=== PATIENT | female | born 1970 | race Caucasian/White ===

== ENCOUNTER 2016-04-10 08:40 | Emergency (ER) | payer OTHER ==
[2016-04-10] MEDS ORDERED: fentaNYL CITRATE/PF 100 MCG/ 2ML AMP ONE (08:42)
[2016-04-10] MEDS ORDERED: fentaNYL CITRATE/PF 100 MCG/ 2ML AMP IVP ONE ×2 (08:43→09:38)
--- NOTE | 2016-04-10 10:13 | Diagnostic Imaging Report ---
[facility] [address] [facility].[address] [address] Report Submission Date: Apr 10, 2016 10:01:41 AM WOMEN'S STUDIES LECTURER Patient Study Name: SHAWNA HECK Date: Apr 10, 2016 8:54:03 AM WOMEN'S STUDIES LECTURER Modality Type: CR Gender: O Description: LOWER EXTREMITY : 66 Institution: [facility] Physician: DALJIT BENITO Left knee - three views Clinical history: Fall with injury. Pain. Findings: Examination of the left knee in AP, lateral and sunrise views demonstrates a vertical intra-articular fracture through the lateral tibial plateau with displacement of the fracture fragment by approximately 6 mm at the articular surface. There is an additional fracture line extending obliquely through the proximal tibial shaft that is not as well defined. The patella and femur appear intact as does the visualized proximal fibula. There is a joint effusion present with fat-fluid level. Impression: 1. Vertical intra-articular fracture of the lateral tibial plateau. 2. Additional oblique fracture in the proximal tibial shaft. 3. Lipohemarthrosis. Electronically signed on Apr 10, 2016 10:01:41 AM WOMEN'S STUDIES LECTURER by: Rick WILKERSON
[2016-04-10] MEDS ORDERED: KETOROLAC TROMETHAMINE 60 MG/2 ML VIAL IM ONE (10:14)
--- NOTE | 2016-04-10 10:14 | Diagnostic Imaging Report ---
[facility] [address] [facility].[address] [address] Report Submission Date: Apr 10, 2016 10:03:33 AM MANAGER BEAUTY Patient Study Name: SHAWNA HECK Date: Apr 10, 2016 8:52:31 AM MANAGER BEAUTY Modality Type: CR Gender: O Description: LOWER EXTREMITY : 66 Institution: [facility] Physician: DALJIT BENITO Left tibia and fibula - two views Clinical history: Fall off of a ladder. Pain. Findings: Examination of the left tibia and fibula in AP and lateral views demonstrates again a vertical intra-articular fracture of the lateral tibial plateau. The distal tibial shaft and fibula appear intact. The ankle mortise appears anatomic on these images. Impression: 1. Vertical intra-articular fracture of the lateral tibial plateau. Electronically signed on Apr 10, 2016 10:03:33 AM MANAGER BEAUTY by: Rick WILKERSON
[2016-04-10] MEDS ORDERED: KETOROLAC TROMETHAMINE 60 MG/2 ML VIAL ONE (10:15)
[2016-04-10] MEDS ORDERED: HYDROmorphone HCL/PF 1 MG/ML DISP.SYRIN ONE (10:16)
[2016-04-10] MEDS ORDERED: HYDROmorphone HCL/PF 1 MG/ML DISP.SYRIN IVP ONE (10:22)
[2016-04-10] MEDS ORDERED: 0.9 % SODIUM CHLORIDE 1,000 ML IV ONE (10:26)
--- NOTE | 2016-04-10 10:36 | ED Physician Documentation ---
Lower Extremity Injury - HISTORIAN Historian: patient - HPI Stated Complaint: Left Knee Injury Chief Complaint: Lower Extremity Injury Onset: minutes Where: school Context: fall Associated Symptoms:: unable to bear weight Modifying Factors:: pain on movement - ROS CONST: no problems CVS/RESP: none GI/: denies: nausea, vomiting MS/SKIN/LYMPH: none NEURO: denies: headache - PAST HX Past History: other (HTN, hypothyroidism) Allergies/Adverse Reactions: Allergies Allergy/AdvReac Type Severity Reaction Status Date / Time No Known Allergies Allergy Verified 04/10/16 08:54 Home Medications: Ambulatory Orders Medication Instructions Recorded Lisinopril/Hctz 20-12.5 1 each PO DAILY u2 10/01/14 [Zestoretic 20-12.5] - SOCIAL HX Smoking History: non-smoker - FAMILY HX Family History: denies: none - VITAL SIGNS Vital Signs: Vital Signs Temp Pulse Resp BP Pulse Ox 97 F L 60 18 122/60 98 04/10/16 08:40 04/10/16 08:40 04/10/16 08:40 04/10/16 08:40 04/10/16 08:40 - REVIEWED ASSESSMENTS Nursing Assessment Reviewed: Yes Vitals Reviewed: Yes Progress - Progress Progress: 0955 Updated patient on xray results, recommended orthopedic consult. Patient c /o continued pain 10/12. 1005 Call to Willie for othropedic consult 1027 Patient accepted by Maureen SALAZAR - patient to go to pre-op, keep NPO. Discussed immobilization - recommended propping on pillow, keep ice on knee for transfer. 1030 Updated patient on plan of care, agrees with transfer. NPO since midnight. patient did not eat breakfast. ED Results Lab/Radiology - Orders Orders: ED Orders Category Date Time Status Place Saline Lock/IV NOW Care 04/10/16 08:43 Completed KNEE 3 VIEWS [RAD] Stat Exams 04/10/16 Completed TIBIA & FIBULA 2 VIEW [RAD] Stat Exams 04/10/16 Completed 0.9 % Sodium Chloride [Normal Saline] 1,000 ml Med 04/10/16 10:26 Discontinued IV NOW HYDROmorphone HCL/PF [Dilaudid] Med 04/10/16 10:16 Discontinued 1 mg .ROUTE .STK-MED ONE HYDROmorphone HCL/PF [Dilaudid] Med 04/10/16 10:22 Discontinued 1 mg IVP NOW ONE Ketorolac Tromethamine [Toradol] Med 04/10/16 10:15 Discontinued 60 mg .ROUTE .STK-MED ONE Ketorolac Tromethamine [Toradol] Med 04/10/16 10:14 Discontinued 60 mg IM NOW ONE Ondansetron HCl/Pf [Zofran 4 mg/2 ml] Med 04/10/16 10:44 Once 4 mg IVP NOW ONE fentaNYL CITRATE/PF [Duragesic] Med 04/10/16 08:42 Discontinued 100 mcg .ROUTE .STK-MED ONE fentaNYL CITRATE/PF [Duragesic] Med 04/10/16 08:43 Discontinued 50 mcg IVP NOW ONE fentaNYL CITRATE/PF [Duragesic] Med 04/10/16 09:38 Discontinued 50 mcg IVP NOW ONE Lower Extremities Injury Phy - Physical Exam General Appearance: severe distress Hips: bilateral hip: non-tender, normal inspection, normal range of motion, no evidence of injury Legs: bilateral: non-tender, normal inspection, normal range of motion, no evidence of injury Knees: right: non-tender, normal inspection, normal range of motion, no evidence of injury, left: bone tenderness, deformity (obvious lateral knee deformity), pain Ankle: bilateral: non-tender, normal inspection, normal range of motion, no evidence of injury Foot: bilateral foot: non-tender, normal inspection, normal range of motion, no evidence of injury Gait: gait not tested d/t pain (and deformity) Neuro/Vascular/Tendon: no vascular compromise, motor nml, sensation nml, ROM nml Resp/CVS: chest non-tender, breath sounds nml, heart sounds nml, no resp. distress, lungs clear, reg. rate & rhythm Abdomen: non-tender, pelvis stable Discharge Clincal Impression: Tibial plateau fracture, left Qualifiers: Encounter type: initial encounter Fracture type: closed Qualified Code(s): S82.142A - Displaced bicondylar fracture of left tibia, initial encounter for closed fracture Home Medications: Ambulatory Orders Lisinopril/Hctz 20-12.5 [Zestoretic 20-12.5] 1 each PO DAILY u2 10/01/14 Condition: Fair Disposition: 02 XFER SHT-TRM HOSP Decision to Admit: NO Decision Time: 10:47
[2016-04-10] MEDS ORDERED: ONDANSETRON HCL/PF 4 MG/ 2ML VIAL IVP ONE (10:44)
[2016-04-10] MEDS ORDERED: ONDANSETRON HCL/PF 4 MG/ 2ML VIAL ONE (10:45)
[2016-04-10 10:57] VITALS: BP 112/39
== END 2016-04-10 10:55 | disposition short-term general hospital (02) ==
LOC: ED 08:40
DX: S82.142A Displaced bicondylar fracture of left tibia, initial encounter for closed fracture (principal); W19.XXXA Unspecified fall, initial encounter; Y93.9 Activity, unspecified; Y99.9 Unspecified external cause status
CPT/HCPCS: 73562; 73590; 96372; 96374; 96375; 99283; 99284; J1170; J2405; J3010; J7030; J1885; S1016

== ENCOUNTER 2016-08-28 09:47 | Outpatient (CLI) | payer OTHER ==
--- NOTE | 2016-08-28 14:03 | Diagnostic Imaging Report ---
IVETTE DIALEY [facility] [address] [facility].[address] [address] Report Submission Date: August 28, 2016 1:34:01 PM CDT Patient Study Name: SHAWNA HECK Date: August 28, 2016 9:57:38 AM CDT Modality Type: CR Gender: O Description: LOWER EXTREMITY : 66 Institution: [facility] Physician: IVETTE DAILEY Left foot - three views Clinical history: Pain for 1 week. Findings: Examination of the left foot in plantar, lateral and oblique views demonstrates degenerative changes with narrowing of the interphalangeal joints. There is no evident fracture. Bony structures are osteopenic for the patient' s age. Small calcaneal spurs are seen on the lateral view. Impression: 1. Degenerative changes and osteopenia. 2. No fracture. Electronically signed on August 28, 2016 1:34:01 PM CDT by: Rick WILKERSON
== END 2016-08-28 09:50 ==
LOC: RAD 09:47
PROVIDERS: ATTEND Physician Assistant
DX: M79.672 Pain in left foot (principal)
CPT/HCPCS: 73630

== ENCOUNTER 2017-07-06 16:23 | Outpatient (CLI) | payer OTHER | END 2017-07-06 16:24 | LOC: LABRHC 16:23 | PROVIDERS: ATTEND Physician Assistant | DX: L98.9 Disorder of the skin and subcutaneous tissue, unspecified (principal) ==

== ENCOUNTER 2018-05-04 09:32 | Outpatient (CLI) | payer OTHER ==
[2018-05-04 10:29] LABS: eGFR (Non-African) > 60
== END 2018-05-04 10:05 ==
LOC: LAB 09:32
PROVIDERS: ATTEND Nurse Practitioner Family
DX: I10 Essential (primary) hypertension (principal); E03.8 Other specified hypothyroidism; R73.9 Hyperglycemia, unspecified
CPT/HCPCS: 36415; 80053; 80061; 83036; 84439; 84443; 84481